=== PATIENT | female | born 1995 | race Caucasian/White ===

== ENCOUNTER 2016-12-31 16:39 | Emergency (ER) | payer OTHER ==
[2016-12-31 16:49] VITALS: BP 108/69; PULSE 69; TEMP 98; BMI 20.7
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
[2016-12-31 18:52] LABS: URINE APPEARANCE CLOUDY; URINE BILIRUBIN NEGATIVE (NEGATIVE); URINE BLOOD 1+ (NEGATIVE); URINE COLOR YELLOW; URINE GLUCOSE (UA) NEGATIVE (NEGATIVE); URINE KETONE NEGATIVE (NEGATIVE); URINE LEUK ESTERASE TRACE (NEGATIVE); URINE NITRITE NEGATIVE (NEGATIVE); URINE PROTEIN 1+ (NEGATIVE); URINE UROBILINOGEN NEGATIVE E.U./dl (0.2-1.0)
[2016-12-31 19:02] LABS: URINE BACTERIA RARE /hpf (NONE SEEN); URINE MUCUS RARE; URINE RBC 15 /hpf (0-3)
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
== END 2016-12-31 19:35 | disposition home or self-care (01) ==
LOC: JERFT 16:39
DX: S30.0XXA Contusion of lower back and pelvis, initial encounter (principal); R31.29 Other microscopic hematuria; V43.52XA Car driver injured in collision with other type car in traffic accident, initial encounter; Y92.488 Other paved roadways as the place of occurrence of the external cause; Y93.89 Activity, other specified; Y99.9 Unspecified external cause status
CPT/HCPCS: 71101-TC; 81003; 81015; 84703; 99281-25

== ENCOUNTER 2025-04-30 09:14 | Emergency (ER) | payer OTHER ==
[2025-04-30 09:25] VITALS: BMI 37.2
[2025-04-30] MEDS ORDERED: KETOROLAC TROMETHAMINE 15 MG/ML VIAL ONE (10:13)
[2025-04-30] MEDS: KETOROLAC TROMETHAMINE 15 MG/ML VIAL IM ONE (10:26)
[2025-04-30] MEDS ORDERED: LIDOCAINE HCL 1%, 10 MG/ML (20ML VIAL) ONE (11:12)
[2025-04-30] MEDS: LIDOCAINE HCL 1%, 10 MG/ML (50 mL VIAL) SQ ONE (11:20)
[2025-04-30 12:20] LABS: HCV DIAGNOSTIC IN-HOUSE W/RFLX NON-REACTIVE (NONREACTIVE)
[2025-04-30 15:45] VITALS: BP 102/53; PULSE 75; RESP 17; TEMP 98.2
[2025-04-30 20:12] LABS: HIV INTERPRETATION NEGATIVE (NEGATIVE)
== END 2025-04-30 16:08 | disposition home or self-care (01) ==
LOC: JER 09:14
PROC: 0RSUXZZ Reposition Right Metacarpophalangeal Joint, External Approach (ICD-10-PCS; principal; 2025-04-30)
PROC: 3E0233Z Introduction of Anti-inflammatory into Muscle, Percutaneous Approach (ICD-10-PCS; 2025-04-30)
DX: S63.111A Subluxation of metacarpophalangeal joint of right thumb, initial encounter (principal); X50.1XXA Overexertion from prolonged static or awkward postures, initial encounter
CPT/HCPCS: 36415; 73140-TC-RT-FY; 73200-TC-RT; 86803; 87389; 99285-25